=== PATIENT | female | born 1990 | race American Indian/Alaskan Native ===

== ENCOUNTER 2017-06-27 03:45 | Emergency (ER) | payer OTHER ==
[2017-06-27] MEDS ORDERED: TYLENOL PO ONE (05:12)
[2017-06-27 05:45] LABS: Basophils # (Auto) 0.1 K/mm3 (0.0-0.1); Basophils % (Auto) 0.5 % (0.0-1.8); Eosinophils # (Auto) 0.2 K/mm3 (0.0-0.4); Eosinophils % (Auto) 0.9 % (0.0-4.3); Hematocrit 45.8 % (30.3-42.9); Mean Corpuscular HGB Conc 33 % (30-34); Mean Corpuscular Hemoglobin 28 pg (28-32); Mean Corpuscular Volume 84 fl (79-97); Monocytes # (Auto) 1.2 K/mm3 (0.0-0.8); Monocytes % (Auto) 6.7 % (0.0-7.3); Platelet Count 279 K/mm3 (140-440); Red Blood Count 5.43 M/mm3 (3.65-5.03); Red Cell Distribution Width 13.3 % (13.2-15.2)
[2017-06-27 06:07] LABS: Bilirubin,Urine NEG (Negative); Blood,Urine NEG (Negative); Color,Urine Straw (Yellow); Mucus,Urine FEW /HPF; Nitrite,Urine NEG (Negative); Protein,Urine <15 mg/dL mg/dL (Negative); Urobilinogen,Urine < 2.0 mg/dL (<2.0)
[2017-06-27 06:14] LABS: BUN/Creatinine Ratio 13; Blood Urea Nitrogen 8 mg/dL (7-17); Calcium 10.2 mg/dL (8.4-10.2); Hemolysis Index 7
[2017-06-27] MEDS ORDERED: ZOFRAN IV ONE (20:34)
[2017-06-27] MEDS ORDERED: SUBLIMAZE IV ONE (20:34)
--- NOTE | 2017-06-27 20:40 | Emergency Department Report ---
HPI - General Chief Complaint: Skin/Abscess/Foreign Body Time Seen by Provider: 06/27/17 20:29 - HPI HPI: Room 25 The patient is a 26-year-old female presenting with chief complaint of left labial mass. The patient states for 4 days she has noticed left labial pain and swelling. The patient states that one of her "glands are clogged." The patient states there has been no drainage or "head" formation of swelling. Patient complains of pain of the left labia and gives a score of 8/10. Patient denies any other forms of pain. Patient denies fever or nausea/vomiting. Location: Left labia Duration: 4 days Quality: Pain Severity: 8/10 Modifying factors: [see above] Context: [see above] Mode of transportation: [not driving] ED Past Medical Hx - Past Medical History Hx Hypertension: Yes Hx Diabetes: Yes Hx Kidney Stones: Yes - Surgical History Past Surgical History?: No - Family History Family history: no significant - Social History Smoking Status: Former Smoker (none 2 months) Substance Use Type: None (denies illicit drug use) - Medications Home Medications: Home Medications Medication Instructions Recorded Confirmed Last Taken Type Doxycycline [Vibramycin CAP] 100 mg PO Q12HR #14 capsule 06/27/17 Unknown Rx HYDROcodone/APAP 5-325 [Como 1 - 2 each PO Q6HR PRN #14 tablet 06/27/17 Unknown Rx 5/325] Ibuprofen [Motrin] 800 mg PO Q8HR PRN #20 tablet 06/27/17 Unknown Rx Lantus 20 units SQ DAILY 06/27/17 06/27/17 Unknown History Lisinopril 20 mg PO DAILY 06/27/17 06/27/17 Unknown History metFORMIN 1,000 mg PO BID 06/27/17 06/27/17 Unknown History ED Review of Systems ROS: Stated complaint: VAG PAIN / POSSIBLE BOIL Other details as noted in HPI Constitutional: denies: fever Eyes: denies: eye pain ENT: denies: throat pain Cardiovascular: denies: chest pain Gastrointestinal: denies: abdominal pain Genitourinary: denies: dysuria Musculoskeletal: denies: back pain Neurological: denies: headache Physical Exam - Physical Exam Vital Signs: Vital Signs 06/27/17 06/27/17 06/27/17 04:13 04:52 19:36 Temperature 98.2 F 98.2 F 99.1 F Pulse Rate 79 89 Respiratory 18 18 Rate Blood Pressure 182/110 177/100 205/119 O2 Sat by Pulse 100 100 Oximetry Physical Exam: GENERAL: The patient is well-developed well-nourished female standing in room not appearing to be in acute distress. [] HEENT: Normocephalic. Atraumatic. Extraocular motions are intact. Patient has moist mucous membranes. NECK: Supple. Trachea midline CHEST/LUNGS: Clear to auscultation. There is no respiratory distress noted. HEART/CARDIOVASCULAR: Regular. There is no tachycardia. There is no gallop rub or murmur. ABDOMEN: Abdomen is soft, nontender. Patient has normal bowel sounds. There is no abdominal distention. SKIN: There is no rash. There is no edema. There is no diaphoresis. NEURO: The patient is awake, alert, and oriented. The patient is cooperative. The patient has normal speech and gait. MUSCULOSKELETAL: There is no evidence of acute injury. GENITOURINARY: Fullness of the left labia majora at approximately 4 to 5 o' clock position consistent with Bartholin's gland abscess ED Course Vital Signs 06/27/17 06/27/17 06/27/17 04:13 04:52 19:36 Temperature 98.2 F 98.2 F 99.1 F Pulse Rate 79 89 Respiratory 18 18 Rate Blood Pressure 182/110 177/100 205/119 O2 Sat by Pulse 100 100 Oximetry - I & D Left Lower Vagina Type of Procedure: Simple Site: left labia majora (Bartholin's gland abscess) Blade Size: 11 I & D Procedure: betadine prep Progress: After sterile prep with Betadine. The most fluctuant region was anesthetized with lidocaine 1% (approximately 4 mLs). At approximately 7 mm incision was made with a #11 blade with copious purulent discharge expressed from the incision site. Site was irrigated with normal saline and then a Word catheter inflated to 5 mL's was placed. Patient tolerated well ED Medical Decision Making - Lab Data Result diagrams: 06/27/17 05:35 06/27/17 05:35 Laboratory Tests 06/27/17 06/27/17 06/27/17 05:00 05:12 05:35 WBC 17.4 H RBC 5.43 H Hgb 15.0 H Hct 45.8 H MCV 84 MCH 28 MCHC 33 RDW 13.3 Plt Count 279 Lymph % (Auto) 17.0 Patrick % (Auto) 6.7 Eos % (Auto) 0.9 Baso % (Auto) 0.5 Lymph # 3.0 Patrick # 1.2 H Eos # 0.2 Baso # 0.1 Seg Neutrophils % 74.9 H Seg Neutrophils # 13.1 H VBG pH Sodium Potassium Chloride Carbon Dioxide Anion Gap BUN Creatinine Estimated GFR BUN/Creatinine Ratio Glucose POC Glucose 317 H Calcium HCG, Qual Urine Color Straw Urine Turbidity Clear Urine pH 5.0 Ur Specific [place] 1.017 Urine Protein <15 mg/dl Urine Glucose (UA) >=500 Urine Ketones Neg Urine Blood Neg Urine Nitrite Neg Urine Bilirubin Neg Urine Urobilinogen < 2.0 Ur Leukocyte Esterase Neg Urine WBC (Auto) 1.0 Urine RBC (Auto) 1.0 U Epithel Cells (Auto) 2.0 Urine Mucus Few 06/27/17 06/27/17 06/27/17 05:35 05:35 05:35 WBC RBC Hgb Hct MCV MCH MCHC RDW Plt Count Lymph % (Auto) Patrick % (Auto) Eos % (Auto) Baso % (Auto) Lymph # Patrick # Eos # Baso # Seg Neutrophils % Seg Neutrophils # VBG pH 7.313 L Sodium 140 Potassium 3.7 Chloride 97.4 L Carbon Dioxide 24 Anion Gap 22 BUN 8 Creatinine 0.6 L Estimated GFR > 60 BUN/Creatinine Ratio 13 Glucose 296 H POC Glucose Calcium 10.2 HCG, Qual Negative Urine Color Urine Turbidity Urine pH Ur Specific [place] Urine Protein Urine Glucose (UA) Urine Ketones Urine Blood Urine Nitrite Urine Bilirubin Urine Urobilinogen Ur Leukocyte Esterase Urine WBC (Auto) Urine RBC (Auto) U Epithel Cells (Auto) Urine Mucus 06/27/17 22:14 WBC RBC Hgb Hct MCV MCH MCHC RDW Plt Count Lymph % (Auto) Patrick % (Auto) Eos % (Auto) Baso % (Auto) Lymph # Patrick # Eos # Baso # Seg Neutrophils % Seg Neutrophils # VBG pH Sodium Potassium Chloride Carbon Dioxide Anion Gap BUN Creatinine Estimated GFR BUN/Creatinine Ratio Glucose POC Glucose 185 H Calcium HCG, Qual Urine Color Urine Turbidity Urine pH Ur Specific [place] Urine Protein Urine Glucose (UA) Urine Ketones Urine Blood Urine Nitrite Urine Bilirubin Urine Urobilinogen Ur Leukocyte Esterase Urine WBC (Auto) Urine RBC (Auto) U Epithel Cells (Auto) Urine Mucus Wet prep-no clue cells, yeast or Trichomonas seen - Differential Diagnosis Bartholin's gland abscess, labial abscess, herpes Critical care attestation.: If time is entered above; I have spent that time in minutes in the direct care of this critically ill patient, excluding procedure time. ED Disposition Clinical Impression: Bartholin's gland abscess Disposition: TO HOME OR SELFCARE Is pt being admited?: No Does the pt Need Aspirin: No Condition: Stable Instructions: Incision and Drainage (ED) Prescriptions: Doxycycline [Vibramycin CAP] 100 mg PO Q12HR #14 capsule HYDROcodone/APAP 5-325 [Como 5/325] 1 - 2 each PO Q6HR PRN #14 tablet PRN Reason: Pain Ibuprofen [Motrin] 800 mg PO Q8HR PRN #20 tablet PRN Reason: Pain Referrals: PRIMARY CARE, [Primary Care Provider] - 3-5 Days CHIP JACOBO MD [Staff Physician] - 3-5 Days (Dr. Walker is an OB/ IMPLEMENT MECHANIC. Please follow up with her for further evaluation) Time of Disposition: 22:18
[2017-06-27] MEDS ORDERED: XYLOCAINE 1% 20 mL ONE (20:55)
[2017-06-27] MEDS ORDERED: NACL 0.9% 500 ML IR ONE (20:55)
[2017-06-27] MEDS ORDERED: ZITHROMAX PO ONE (21:40)
[2017-06-27] MEDS ORDERED: ROCEPHIN/NS 1 GM/50 ML 1 GM/50 ML BAG IV ONE (21:40)
[2017-06-27] MEDS ORDERED: cefTRIAXone 1 GM in NACL 0.9% 20 ML IV ONE (21:45)
[2017-06-27] MEDS ORDERED: XYLOCAINE 1% 20 mL INFILTRATI ONE (22:00)
[2017-06-27 22:13] VITALS: BP 164/89
== END 2017-06-27 22:30 | disposition home or self-care (01) ==
LOC: ED 03:45
DX: N75.1 Abscess of Bartholin's gland (principal); I10 Essential (primary) hypertension; E11.9 Type 2 diabetes mellitus without complications; F17.200 Nicotine dependence, unspecified, uncomplicated
CPT/HCPCS: 36415; 56420; 80048; 81001; 82805; 82962; 84703; 85025; 87210; 87591; 96374; 96375; 99285; J0696; J2405; J3010

== ENCOUNTER 2017-07-02 19:40 | Emergency (ER) | payer OTHER ==
[2017-07-03] MEDS ORDERED: ZOFRAN ODT PO ONE (00:56)
[2017-07-03] MEDS ORDERED: NORCO 5/325 PO ONE (00:56)
--- NOTE | 2017-07-03 00:56 | Emergency Department Report ---
ED Female HPI - General Chief complaint: Laceration/Recheck/Suture Stated complaint: WOUND CHECK Time Seen by Provider: 07/03/17 00:26 Source: patient Mode of arrival: Ambulatory Limitations: No Limitations - History of Present Illness Initial comments: 26F PMH DMT2, HTn p/w c/o dislodged word cather left labia. pt states that 6 days ago she had I&D of left bartholins abscess and word catheter has since slipped slightly out of place. pt state she still has some discomfort but better than she initially had. Patient states she is going to follow up with OB /[facility] this week. Patient states that because word catheter slipped slightly out of place and is uncomfortable to walk. Denies fevers chills abdominal pain nausea or vomiting. States she has had some scant drainage from site of incision and drainage. MD Complaint: other (left labial bartholins I&d 5 days ago with catheter) Onset/Timin Location: labia (left) Severity: moderate Severity scale (0 -10): 5 Quality: aching Consistency: intermittent Worsens with: movement Are you Now?: No - Related Data Sexually active: No Home Medications Medication Instructions Recorded Confirmed Last Taken Lantus 20 units SQ DAILY 06/27/17 06/27/17 Unknown Lisinopril 20 mg PO DAILY 06/27/17 06/27/17 Unknown metFORMIN 1,000 mg PO BID 06/27/17 06/27/17 Unknown Previous Rx's Medication Instructions Recorded Last Taken Type Doxycycline [Vibramycin CAP] 100 mg PO Q12HR #14 capsule 06/27/17 Unknown Rx HYDROcodone/APAP 5-325 [Elmo 1 - 2 each PO Q6HR PRN #14 tablet 06/27/17 Unknown Rx 5/325] Ibuprofen [Motrin] 800 mg PO Q8HR PRN #20 tablet 06/27/17 Unknown Rx Insulin Glargine,Hum.rec.anlog 20 unit SQ QHS #1 insuln.pen 06/27/17 Unknown Rx [Lantus Solostar] Allergies Allergy/AdvReac Type Severity Reaction Status Date / Time No Known Allergies Allergy Verified 07/02/17 19:49 ED Review of Systems ROS: Stated complaint: WOUND CHECK Other details as noted in HPI Constitutional: denies: chills, fever Eyes: denies: eye pain, eye discharge, vision change ENT: denies: ear pain, throat pain Respiratory: denies: cough, shortness of breath, wheezing Cardiovascular: denies: chest pain, palpitations Endocrine: no symptoms reported Gastrointestinal: denies: abdominal pain, nausea, diarrhea Genitourinary: as per HPI. denies: urgency, dysuria, discharge Musculoskeletal: denies: back pain, joint swelling, arthralgia Skin: denies: rash, lesions Neurological: denies: headache, weakness, paresthesias Psychiatric: denies: anxiety, depression Hematological/Lymphatic: denies: easy bleeding, easy bruising ED Past Medical Hx - Past Medical History Hx Hypertension: Yes Hx Diabetes: Yes Hx Kidney Stones: Yes - Social History Smoking Status: Never Smoker Substance Use Type: None - Medications Home Medications: Home Medications Medication Instructions Recorded Confirmed Last Taken Type Doxycycline [Vibramycin CAP] 100 mg PO Q12HR #14 capsule 06/27/17 Unknown Rx HYDROcodone/APAP 5-325 [Elmo 1 - 2 each PO Q6HR PRN #14 tablet 06/27/17 Unknown Rx 5/325] Ibuprofen [Motrin] 800 mg PO Q8HR PRN #20 tablet 06/27/17 Unknown Rx Insulin Glargine,Hum.rec.anlog 20 unit SQ QHS #1 insuln.pen 06/27/17 Unknown Rx [Lantus Solostar] Lantus 20 units SQ DAILY 06/27/17 06/27/17 Unknown History Lisinopril 20 mg PO DAILY 06/27/17 06/27/17 Unknown History metFORMIN 1,000 mg PO BID 06/27/17 06/27/17 Unknown History ED Physical Exam - General Limitations: No Limitations General appearance: alert, in no apparent distress - Head Head exam: Present: atraumatic, normocephalic - Eye Eye exam: Present: normal appearance - ENT ENT exam: Present: mucous membranes moist - Neck Neck exam: Present: normal inspection - Respiratory Respiratory exam: Present: normal lung sounds bilaterally. Absent: respiratory distress - Cardiovascular Cardiovascular Exam: Present: regular rate, normal rhythm. Absent: systolic murmur, diastolic murmur, rubs, gallop - GI/Abdominal GI/Abdominal exam: Present: soft, normal bowel sounds - External exam: Present: other (left bartholins abscess/cyst incision site with word cather in place but poking out of 2 incision sites. No palpable fluctuance or visivble erythema/cellulitis) Speculum exam: Present: normal speculum exam Bi-manual exam: Present: normal bi-manual exam - Extremities Exam Extremities exam: Present: normal inspection - Back Exam Back exam: Present: normal inspection - Neurological Exam Neurological exam: Present: alert, oriented X3 - Psychiatric Psychiatric exam: Present: normal affect, normal mood - Skin Skin exam: Present: warm, dry, intact, normal color. Absent: rash ED Course Vital Signs 07/02/17 07/03/17 19:49 01:25 Temperature 98.8 F Pulse Rate 94 H 77 Respiratory 18 Rate Blood Pressure 191/99 190/114 O2 Sat by Pulse 100 Oximetry ED Medical Decision Making - Medical Decision Making A/P: Richards catheter removal, asymptomatic HTN 1-significant decompression of Bartholin's abscess, patient has no palpable fluctuance or vaginal labial swelling. WORD catheter disloged and removed 2-patient states that she is going to follow up with [facility] this week 3-I advised patient to continue taking antibiotics. Patient has analgesics at home for pain. 4-patient reports no fevers chills nausea vomiting or reaccumulation of abscess/ cyst 5- patient denies chest pain palpitations shortness of breath nausea vomiting abdominal pain blurry vision and headache. Asymptomatic hypertension. Patient' s follow up with primary care doctor Critical care attestation.: If time is entered above; I have spent that time in minutes in the direct care of this critically ill patient, excluding procedure time. ED Disposition Clinical Impression: Visit for wound check, Cyst of Bartholin's gland Disposition: TO HOME OR SELFCARE Is pt being admited?: No Does the pt Need Aspirin: No Condition: Stable Instructions: Bartholin Cyst (ED), Sitz Bath (GEN) Referrals: [facility] [Provider Group] - 3-5 Days [facility] [Provider Group] - 3-5 Days Forms: Work/School Release Form(ED) Time of Disposition:
[2017-07-03] MEDS ORDERED: ZESTRIL PO ONE (01:24)
[2017-07-03] MEDS ORDERED: CATAPRES PO ONE (01:25)
[2017-07-03 06:42] VITALS: BP 165/98
== END 2017-07-03 02:00 | disposition home or self-care (01) ==
LOC: ED 19:40
DX: T85.9XXA Unspecified complication of internal prosthetic device, implant and graft, initial encounter (principal); N75.0 Cyst of Bartholin's gland; I10 Essential (primary) hypertension; E11.9 Type 2 diabetes mellitus without complications; Z87.442 Personal history of urinary calculi; Y83.8 Other surgical procedures as the cause of abnormal reaction of the patient, or of later complication, without mention of misadventure at the time of the procedure; Y92.89 Other specified places as the place of occurrence of the external cause
CPT/HCPCS: 99283; Q0162